=== PATIENT | male | born 1965 | race Caucasian/White ===

== ENCOUNTER 2016-09-20 09:39 | Inpatient (IN) | payer MEDICARE ==
[~2016-09-20] VITALS: Ht 172.7 cm; Wt 60.0 kg
--- NOTE | ~2016-09-20 | ST ---
[place], [place] EXERCISE STRESS TEST REPORT NAME: DACIA GÓMEZ UNIT #: [id number] ROOM: [id number] DOCTOR: JOSE JUAN WINTERS MD BIRTHDATE: [birth year] DOS: 09/21/2016 LEXISCAN STRESS TEST INDICATIONS: Chest pain. PROCEDURE: Pharmacological stress test. The patient was given Lexiscan 0.4 mg IV over 10 seconds followed by nuclear injection at 40 seconds. Performance baseline heart rate 92, blood pressure 118/78, heart rate at 2 minutes was 126, blood pressure 118/74. EKG RESPONSE: Baseline EKG, normal sinus rhythm. Stress EKG, no ST changes. CLINICAL RESPONSE: Chest heaviness and warm feeling. INTERPRETATION: 1. Negative Lexiscan stress test. 2. Await for Cardiolite images for full report. JOSE JUAN WINTERS MD CM:STRESS:EXERCISE STRESS TEST REPORT [id number] JOSE JUAN WINTERS MD
[~2016-09-20 09:39] MED LIST: ANAPROX DS550 MG PO; ASPIRIN81 M1 PO; BACTRIM DS 8001 TA1 PO; FLOMAX0.4 MG PO; MOTRIN800 MG PO; NAPROSYN EC375 MG PO; OPANA ER15 MG PO; PERCOCET 325 MG1 TA2 PO; TESSALON PERLE100 MG PO; VIBRAMYCIN100 MG PO; ZOFRAN ODT4 MG SL
[2016-09-20 09:51] VITALS: BP 132/83
[2016-09-20] MEDS ORDERED: CIPRO250 MG PO (09:59)
[2016-09-20 10:14] LABS: BASO % 0.4 % (0.0-1.0); EOS % 0.5 % (1.0-4.0); HEMATOCRIT 42.4 % (42.0-52.0); HEMOGLOBIN 14.7 g/dl (14.0-18.0); LYMPH # 2.1 10*3/uL (1.3-4.4); LYMPH % 25.8 % (27.0-41.0); MEAN CELL VOLUME 87.2 fl (80.0-94.0); MEAN CORPUSCULAR HGB 30.2 pg (27.0-31.0); MEAN CORPUSCULAR HGB CONC 34.7 g/dl (33.0-37.0); MEAN PLATELET VOLUME 9.3 fl (9.6-12.3); MONO # 0.6 10*3/uL (0.1-1.0); NEUT # 5.4 10*3/uL (2.3-7.9); NEUT % 66.1 % (47.0-73.0); PLATELET COUNT AUTOMATED 300 10*3/uL (130-400); RED BLOOD COUNT 4.86 10*6/uL (4.50-5.90); RED CELL DISTRI WIDTH 12.1 % (0-14.5); WHITE BLOOD COUNT 8.2 10*3/uL (4.8-10.8)
[2016-09-20 10:30] LABS: ALKALINE PHOSPHATASE 73 U/L (45-117); BILIRUBIN, TOTAL 1.5 mg/dl (0.2-1.0); BUN 9 mg/dl (7-24); CARBON DIOXIDE 22 mmol/L (21-32); CHLORIDE 104 mmol/L (98-107); EST GLOM FILT AFRICAN AMERICAN > 60 ml/min; GLUCOSE 109 mg/dL (65-99); POTASSIUM 3.5 mmol/L (3.5-5.1); SGOT/AST 21 IU/L (3-35); SGPT/ALT 36 U/L (12-78); SODIUM 141 mmol/L (136-145); TOTAL PROTEIN 7.6 gm/dL (6.4-8.2)
[2016-09-20 10:32] LABS: TROPONIN I < 0.015 ng/ml (<0.045)
[2016-09-20 10:48] VITALS: BP 120/82
[2016-09-20 11:50] VITALS: BP 120/81
[2016-09-20 12:56] VITALS: BP 109/79
[2016-09-20 16:00] VITALS: BP 122/75
[2016-09-20 16:11] LABS: CKMB 0.8 ng/ml (0.5-3.6); CPK 53 U/L (39-308); TROPONIN I < 0.015 ng/ml (<0.045)
[2016-09-20 20:00] VITALS: BP 119/80
[2016-09-20 20:29] LABS: BILIRUBIN NEGATIVE (NEGATIVE); BLOOD 3+ (NEGATIVE); CLARITY CLEAR (CLEAR); COLOR YELLOW (YELLOW); GLUCOSE NEGATIVE (NEGATIVE); KETONE NEGATIVE (NEGATIVE); LEUKO ESTERASE 1+ (NEGATIVE); NITRITE NEGATIVE (NEGATIVE); PROTEIN TRACE (NEGATIVE); SPECIFIC GRAVITY <= 1.005 (1.005-1.030); UROBILINOGEN 0.2 E.U./dl (0.2-1.0)
[2016-09-20 20:37] LABS: BACTERIA 1+; EPITHELIAL CELLS 0-2; RBC 21-30 rbc/hpf (0-2)
[2016-09-20 22:08] LABS: CKMB 0.6 ng/ml (0.5-3.6); CPK 44 U/L (39-308)
[2016-09-20 22:10] LABS: TROPONIN I < 0.015 ng/ml (<0.045)
[2016-09-21] VITALS: BP 102/57
[2016-09-21 04:34] LABS: CKMB < 0.5 ng/ml (0.5-3.6); CPK 42 U/L (39-308); TROPONIN I < 0.015 ng/ml (<0.045)
[2016-09-21 08:00] VITALS: BP 113/73
[2016-09-21 12:00] VITALS: BP 126/76
[2016-09-21 16:00] VITALS: BP 127/82
[2016-09-21 20:00] VITALS: BP 116/83
[2016-09-22] VITALS: BP 118/78
[2016-09-22 08:00] VITALS: BP 110/68; BP 98/64
[2016-09-22 12:00] VITALS: BP 102/60
[2016-09-22] MEDS ORDERED: CIPRO500 MG PO (13:17)
[2016-09-22] MEDS ORDERED: ALPRAZOLAM0.25 M2 PO (13:17)
== END 2016-09-22 14:50 | disposition home or self-care (01) | DRG 880 ==
LOC: ED 09:39 → 4E 12:33 → EDHOLD 12:33 → 4E 13:08
PROVIDERS: Emergency Medicine; Internal Medicine
PROC: 4A02XM4 Measurement of Cardiac Total Activity, External Approach (ICD-10-PCS; principal; 2016-09-21)
DX: F41.9 Anxiety disorder, unspecified (principal); I45.81 Long QT syndrome; N39.0 Urinary tract infection, site not specified; R00.0 Tachycardia, unspecified; R73.9 Hyperglycemia, unspecified; R42 Dizziness and giddiness; K21.9 Gastro-esophageal reflux disease without esophagitis; Z80.1 Family history of malignant neoplasm of trachea, bronchus and lung; Z80.0 Family history of malignant neoplasm of digestive organs; Z82.49 Family history of ischemic heart disease and other diseases of the circulatory system; Z79.2 Long term (current) use of antibiotics

== ENCOUNTER → 2016-11-01 | Outpatient (CLI) | payer MEDICARE ==
[~2016-11-01] MED LIST changes: +ALPRAZOLAM0.25 M2 PO; +CIPRO250 MG PO; +CIPRO500 MG PO
== END | disposition home or self-care (01) ==
LOC: RAD 08:59
DX: N20.0 Calculus of kidney (principal)

== ENCOUNTER → 2016-11-20 | Outpatient (CLI) | payer MEDICARE ==
[2016-11-20 16:48] LABS: BILIRUBIN NEGATIVE (NEGATIVE); BLOOD NEGATIVE (NEGATIVE); CLARITY CLEAR (CLEAR); COLOR YELLOW (YELLOW); GLUCOSE NEGATIVE (NEGATIVE); KETONE NEGATIVE (NEGATIVE); LEUKO ESTERASE NEGATIVE (NEGATIVE); NITRITE NEGATIVE (NEGATIVE); PH 6.5 (5.0-9.0); PROTEIN NEGATIVE (NEGATIVE); SPECIFIC GRAVITY <= 1.005 (1.005-1.030); UROBILINOGEN 0.2 E.U./dl (0.2-1.0)
[2016-11-20 16:49] LABS: BASO % 0.7 % (0.0-1.0); EOS # 0.1 10*3/uL (0.0-0.4); EOS % 1.7 % (1.0-4.0); HEMATOCRIT 39.5 % (42.0-52.0); HEMOGLOBIN 13.3 g/dl (14.0-18.0); LYMPH # 1.3 10*3/uL (1.3-4.4); LYMPH % 22.5 % (27.0-41.0); MEAN CELL VOLUME 89.2 fl (80.0-94.0); MEAN CORPUSCULAR HGB CONC 33.7 g/dl (33.0-37.0); MEAN PLATELET VOLUME 9.4 fl (9.6-12.3); MONO # 0.5 10*3/uL (0.1-1.0); MONO % 7.6 % (3.0-9.0); NEUT % 67.3 % (47.0-73.0); PLATELET COUNT AUTOMATED 274 10*3/uL (130-400); RED BLOOD COUNT 4.43 10*6/uL (4.50-5.90); RED CELL DISTRI WIDTH 11.8 % (0-14.5)
[2016-11-20 16:53] LABS: BACTERIA TRACE; EPITHELIAL CELLS 0-2; RBC 0-2 rbc/hpf (0-2); WBC 0-2 wbc/hpf (0-5)
[2016-11-20 17:19] LABS: ALBUMIN 3.9 gm/dl (3.1-4.5); BUN 9 mg/dl (7-24); CARBON DIOXIDE 27 mmol/L (21-32); CHLORIDE 106 mmol/L (98-107); GLUCOSE 87 mg/dL (65-99); POTASSIUM 3.4 mmol/L (3.5-5.1); SGPT/ALT 21 U/L (12-78); SODIUM 139 mmol/L (136-145)
[2016-11-20 17:22] LABS: ALKALINE PHOSPHATASE 66 U/L (45-117); EST GLOM FILT AFRICAN AMERICAN > 60 ml/min; FREE THYROXIN INDEX/T7 3.1 (1.4-4.7); SGOT/AST 18 IU/L (3-35); T3 UPTAKE 33 % (31-39); THYROXINE (T4) TOTAL 9.4 ug/dl (4.5-12.1); TOTAL PROTEIN 7.3 gm/dL (6.4-8.2)
== END | disposition home or self-care (01) ==
LOC: LAB 16:21 → US 17:00
PROVIDERS: Urology
DX: Z12.5 Encounter for screening for malignant neoplasm of prostate (principal); D40.0 Neoplasm of uncertain behavior of prostate; N20.0 Calculus of kidney

== ENCOUNTER → 2016-11-23 | Outpatient (CLI) | payer MEDICARE | END | disposition home or self-care (01) | LOC: LAB 12:19 | PROVIDERS: Urology | DX: Z12.5 Encounter for screening for malignant neoplasm of prostate (principal); N20.0 Calculus of kidney; D40.0 Neoplasm of uncertain behavior of prostate ==

== ENCOUNTER → 2016-12-28 | Outpatient (CLI) | payer MEDICARE | LOC: RAD 17:31 | DX: L02.612 Cutaneous abscess of left foot (principal) ==

== ENCOUNTER → 2020-01-28 | Outpatient (CLI) | payer MEDICARE | END | disposition home or self-care (01) | LOC: RAD 14:31 | DX: M50.30 Other cervical disc degeneration, unspecified cervical region (principal); M85.88 Other specified disorders of bone density and structure, other site; R20.2 Paresthesia of skin ==

== ENCOUNTER → 2020-02-12 | Outpatient (CLI) | payer MEDICARE | END | disposition home or self-care (01) | LOC: RAD 02-11 09:00 | DX: M81.8 Other osteoporosis without current pathological fracture (principal); M85.89 Other specified disorders of bone density and structure, multiple sites ==

== ENCOUNTER → 2020-03-17 | Outpatient (CLI) | payer MEDICARE | END | disposition home or self-care (01) | LOC: CT 10:54 | PROVIDERS: ATTEND Internal Medicine | DX: R51 Headache (principal) ==

== ENCOUNTER → 2021-03-15 | Outpatient (CLI) | payer MEDICARE | END | disposition home or self-care (01) | LOC: COVID19 15:18 | PROVIDERS: ATTEND Hospitalist | DX: Z11.52 Encounter for screening for COVID-19 (principal) ==

== ENCOUNTER 2021-05-03 15:26 | Emergency (ER) | payer MEDICARE ==
[~2021-05-03] VITALS: Ht 172.7 cm; Wt 65.8 kg
== END 2021-05-03 16:50 | disposition home or self-care (01) ==
LOC: ED 15:26
DX: S81.812A Laceration without foreign body, left lower leg, initial encounter (principal); W26.8XXA Contact with other sharp object(s), not elsewhere classified, initial encounter; Y93.89 Activity, other specified; Y92.89 Other specified places as the place of occurrence of the external cause; Y99.8 Other external cause status

== ENCOUNTER → 2021-05-19 | Outpatient (CLI) | payer MEDICARE | LOC: WOUNDCARE 00:13 | PROVIDERS: ATTEND Nurse Practitioner Family | DX: T81.33XA Disruption of traumatic injury wound repair, initial encounter (principal); S81.802A Unspecified open wound, left lower leg, initial encounter; X58.XXXA Exposure to other specified factors, initial encounter; Y93.89 Activity, other specified; Y83.8 Other surgical procedures as the cause of abnormal reaction of the patient, or of later complication, without mention of misadventure at the time of the procedure; Y92.238 Other place in hospital as the place of occurrence of the external cause ==

== ENCOUNTER → 2021-05-25 | Outpatient (CLI) | payer MEDICARE | LOC: WOUNDCARE 00:26 | PROVIDERS: ATTEND Nurse Practitioner Family | DX: T81.33XD Disruption of traumatic injury wound repair, subsequent encounter (principal); S81.802D Unspecified open wound, left lower leg, subsequent encounter; X58.XXXD Exposure to other specified factors, subsequent encounter; Y83.8 Other surgical procedures as the cause of abnormal reaction of the patient, or of later complication, without mention of misadventure at the time of the procedure ==

== ENCOUNTER → 2021-06-01 | Outpatient (CLI) | payer MEDICARE | LOC: WOUNDCARE 02:28 | PROVIDERS: ATTEND Nurse Practitioner Family | DX: T81.33XD Disruption of traumatic injury wound repair, subsequent encounter (principal); S71.112S Laceration without foreign body, left thigh, sequela; X58.XXXS Exposure to other specified factors, sequela; Y83.8 Other surgical procedures as the cause of abnormal reaction of the patient, or of later complication, without mention of misadventure at the time of the procedure ==

== ENCOUNTER → 2021-06-08 | Outpatient (CLI) | payer MEDICARE | LOC: WOUNDCARE 01:01 | PROVIDERS: ATTEND Nurse Practitioner Family | DX: T81.33XD Disruption of traumatic injury wound repair, subsequent encounter (principal); S71.112S Laceration without foreign body, left thigh, sequela; X58.XXXS Exposure to other specified factors, sequela; Y83.8 Other surgical procedures as the cause of abnormal reaction of the patient, or of later complication, without mention of misadventure at the time of the procedure ==

== ENCOUNTER → 2021-06-15 | Outpatient (CLI) | payer MEDICARE | LOC: WOUNDCARE 00:12 | PROVIDERS: ATTEND Nurse Practitioner Family | DX: T81.33XD Disruption of traumatic injury wound repair, subsequent encounter (principal); S81.802D Unspecified open wound, left lower leg, subsequent encounter; X58.XXXD Exposure to other specified factors, subsequent encounter; Y83.8 Other surgical procedures as the cause of abnormal reaction of the patient, or of later complication, without mention of misadventure at the time of the procedure ==

== ENCOUNTER → 2021-07-08 | Outpatient (CLI) | payer MEDICARE | END | disposition home or self-care (01) | LOC: COVID19 16:43 | PROVIDERS: ATTEND Internal Medicine | DX: Z11.52 Encounter for screening for COVID-19 (principal) ==

== ENCOUNTER → 2022-09-11 | Day surgery (SDC) | payer MEDICARE ==
[~2022-09-11] VITALS: Ht 172.7 cm; Wt 65.8 kg
[~2022-09-11] MED LIST changes: +FOSAMAX70 M1 PO; +LIPITOR20 MG PO
[2022-09-11 07:30] VITALS: BP 125/90
[2022-09-11 09:02] VITALS: BP 100/66
[2022-09-11 09:17] VITALS: BP 98/66
[2022-09-11 09:32] VITALS: BP 107/80
== END | disposition home or self-care (01) ==
LOC: SDC 09-07 11:00
PROVIDERS: ATTEND Surgery
DX: Z12.11 Encounter for screening for malignant neoplasm of colon (principal); K57.30 Diverticulosis of large intestine without perforation or abscess without bleeding; K29.50 Unspecified chronic gastritis without bleeding; K21.9 Gastro-esophageal reflux disease without esophagitis; E78.00 Pure hypercholesterolemia, unspecified; Z80.0 Family history of malignant neoplasm of digestive organs; Z79.899 Other long term (current) drug therapy
CPT/HCPCS: 00813; 43239; G0105

== ENCOUNTER → 2022-12-22 | Outpatient (CLI) | payer MEDICARE | END | disposition home or self-care (01) | LOC: RAD 12:31 | PROVIDERS: ATTEND Internal Medicine | DX: R07.9 Chest pain, unspecified (principal) ==

== ENCOUNTER → 2023-10-12 | Outpatient (CLI) | payer MEDICARE | END | disposition home or self-care (01) | LOC: RAD 12:29 | PROVIDERS: ATTEND Internal Medicine | DX: M47.812 Spondylosis without myelopathy or radiculopathy, cervical region (principal); M48.02 Spinal stenosis, cervical region; M54.2 Cervicalgia ==

== ENCOUNTER → 2024-08-01 | Outpatient (CLI) | payer MEDICARE ==
[~2024-08-01] MED LIST changes: +HYDROXYZINE PAM25 M1 PO; +METHYLPRED-DP4 MG PO
== END | disposition home or self-care (01) ==
LOC: US 00:47
PROVIDERS: ATTEND Internal Medicine
DX: R17 Unspecified jaundice (principal)

== ENCOUNTER 2024-08-04 16:43 | Emergency (ER) | payer MEDICARE ==
[~2024-08-04] VITALS: Ht 172.7 cm; Wt 64.4 kg
[~2024-08-04 16:43] MED LIST changes: -HYDROXYZINE PAM25 M1 PO; -METHYLPRED-DP4 MG PO
[2024-08-04] MEDS ORDERED: HYDROXYZINE PAM25 M1 PO (17:10)
[2024-08-04] MEDS ORDERED: METHYLPRED-DP4 MG PO (17:12)
[2024-08-04] MEDS ORDERED: IOHEXOL 300 MG/ML 100 ML VIAL IV ONE (17:30)
[2024-08-04 17:37] LABS: BASO % 0.2 % (0.0-1.0); HEMATOCRIT 43.1 % (42.0-52.0); MEAN CELL VOLUME 90.7 fl (80.0-94.0); MEAN CORPUSCULAR HGB 30.1 pg (27.0-31.0); MEAN CORPUSCULAR HGB CONC 33.2 g/dl (33.0-37.0); MEAN PLATELET VOLUME 9.2 fl (9.6-12.3); MONO # 0.7 10*3/uL (0.1-1.0); MONO % 5.3 % (3.0-9.0); NEUT # 10.3 10*3/uL (2.3-7.9); NEUT % 84.4 % (47.0-73.0); PLATELET COUNT AUTOMATED 310 10*3/uL (130-400); RED BLOOD COUNT 4.75 10*6/uL (4.50-5.90); RED CELL DISTRI WIDTH 11.5 % (0-14.5); WHITE BLOOD COUNT 12.2 10*3/uL (4.8-10.8)
[2024-08-04 18:01] LABS: BUN 16 mg/dl (9-23); CHLORIDE 101 mmol/L (98-107); POTASSIUM 3.7 mmol/L (3.4-5.1)
== END 2024-08-04 21:00 | disposition home or self-care (01) ==
LOC: ED 16:43
PROVIDERS: Internal Medicine
DX: N40.0 Benign prostatic hyperplasia without lower urinary tract symptoms (principal); D72.829 Elevated white blood cell count, unspecified; F41.9 Anxiety disorder, unspecified; E78.00 Pure hypercholesterolemia, unspecified; K21.9 Gastro-esophageal reflux disease without esophagitis; Z98.890 Other specified postprocedural states

== ENCOUNTER → 2024-08-19 | Outpatient (CLI) | payer MEDICARE ==
[~2024-08-19] MED LIST changes: +HYDROXYZINE PAM25 M1 PO; +METHYLPRED-DP4 MG PO
== END | disposition home or self-care (01) ==
LOC: RAD 12:44
PROVIDERS: ATTEND Internal Medicine
DX: M47.816 Spondylosis without myelopathy or radiculopathy, lumbar region (principal); M53.3 Sacrococcygeal disorders, not elsewhere classified

== ENCOUNTER → 2024-08-20 | Outpatient (CLI) | payer MEDICARE ==
[2024-08-20 09:53] LABS: BASO % 0.2 % (0.0-1.0); EOS % 0.7 % (1.0-4.0); HEMATOCRIT 44.3 % (42.0-52.0); MEAN CELL VOLUME 92.5 fl (80.0-94.0); MEAN CORPUSCULAR HGB 30.7 pg (27.0-31.0); MEAN CORPUSCULAR HGB CONC 33.2 g/dl (33.0-37.0); MEAN PLATELET VOLUME 9.3 fl (9.6-12.3); MONO # 0.3 10*3/uL (0.1-1.0); PLATELET COUNT AUTOMATED 228 10*3/uL (130-400); RED BLOOD COUNT 4.79 10*6/uL (4.50-5.90); RED CELL DISTRI WIDTH 11.9 % (0-14.5); WHITE BLOOD COUNT 4.3 10*3/uL (4.8-10.8)
[2024-08-20 10:25] LABS: ALKALINE PHOSPHATASE 51 U/L (46-116); BUN 13 mg/dl (9-23); CHLORIDE 105 mmol/L (98-107); POTASSIUM 3.5 mmol/L (3.4-5.1); SGPT/ALT 15 U/L (5-49)
== END | disposition home or self-care (01) ==
LOC: LAB 09:30
PROVIDERS: ATTEND Urology
DX: R53.83 Other fatigue (principal); D40.0 Neoplasm of uncertain behavior of prostate

== ENCOUNTER → 2025-04-28 | Outpatient (CLI) | payer MEDICARE | END | disposition home or self-care (01) | LOC: LAB 10:43 → EDSTATUS 10:44 | PROVIDERS: ATTEND Urology | DX: R97.20 Elevated prostate specific antigen [PSA] (principal) ==

== ENCOUNTER → 2025-05-08 | Outpatient (CLI) | payer MEDICARE | END | disposition home or self-care (01) | LOC: RAD 01:47 | PROVIDERS: ATTEND Internal Medicine | DX: M85.851 Other specified disorders of bone density and structure, right thigh (principal); M81.0 Age-related osteoporosis without current pathological fracture ==